=== PATIENT | male | born 1995 | race Caucasian/White ===

== ENCOUNTER 2019-04-25 01:15 | Emergency (ER) | payer OTHER ==
[~2019-04-25] VITALS: Ht 193 cm; Wt 91.6 kg
[2019-04-25] MEDS ORDERED: LIDOCAINE 1% INJ 20 ML 20 ML VIAL INJ ONE (02:00)
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
[2019-04-25] MEDS ORDERED: SULF1TAB35 PO (02:23)
[2019-04-25 02:25] VITALS: BP 122/78
== END 2019-04-25 02:29 | disposition home or self-care (01) ==
LOC: ER 01:23
DX: S51.011A Laceration without foreign body of right elbow, initial encounter (principal); Y04.0XXA Assault by unarmed brawl or fight, initial encounter
CPT/HCPCS: 12001

== ENCOUNTER 2019-05-05 08:10 | Emergency (ER) | payer OTHER ==
[~2019-05-05 08:10] MED LIST: SULF1TAB35 PO
--- NOTE | 2019-05-05 08:44 | NUR ---
REGISTRATION REPORTS PT LWBS.
== END 2019-05-05 08:44 | disposition left against medical advice (07) ==
LOC: EDUNIT# 08:10 → ER 08:11
DX: Z48.02 Encounter for removal of sutures (principal)